=== PATIENT | male | born 1965 | race Caucasian/White ===

== ENCOUNTER 2025-01-02 10:59 | Outpatient (CLI) | payer BC, SELFPAY | END 2025-01-02 11:00 | disposition home or self-care (01) | LOC: NFLDREF 01-04 10:33 | PROVIDERS: Visit Provider Family Medicine | DX: Z00.00 Encounter for general adult medical examination without abnormal findings (principal); Z13.6 Encounter for screening for cardiovascular disorders | CPT/HCPCS: 80053; 80061 ==

== ENCOUNTER 2025-01-11 08:01 | Day surgery (SDC) | payer BC, SELFPAY ==
[2025-01-11 08:22] VITALS: BP 152/75; PULSE 74; RESP 16; TEMP 36.8; O2SAT 98; BMI 22.8
[2025-01-11] MEDS: LACTATED RINGERS 1000 ML 1,000 ML 100 ML IV (08:45)
[2025-01-11] MEDS: SODIUM CHLORIDE 0.9 % (FLUSH) 10 ML SYRINGE IVF (08:45)
--- NOTE | 2025-01-11 09:08 | W.PM.H&PU ---
History & Physical Update History & Physical Update H&P Reviewed and patient assessed: No changes noted
--- NOTE | 2025-01-11 09:08 | PM.GSPRC ---
Operative Note Date of procedure: 01/11/25 Pre-op diagnosis: Epigastric hernia Post-op diagnosis: Same Type of Procedure: Open primary repair, 7 mm epigastric hernia Indications: The patient is a 59-year-old male who presented to clinic with an abdominal hernia that has been present for several years. It has become increasingly symptomatic for him and he has been limiting his activity because of it. After discussion of options, he elected to proceed with repair. Procedure Description: After discussing the risks and benefits of the procedure, the patient signed informed consent.? The operative site was marked and the patient was brought to the operating room and placed on the operating table in supine position.? Care was taken to pad the patient's pressure points.?? The patient was then given sedation by anesthesia.?? The operative site was then prepped and draped in the usual sterile fashion.? A time-out was then performed. Local anesthetic was injected into the skin and subcutaneous tissue overlying the hernia. An incision was made in the midline and dissection was carried down until the hernia sac was encountered. This was dissected out circumferentially. The hernia sac itself was almost golf ball size, however the fascial defect was very small. I was able to reduce the hernia, excising the sac and the fascial defect was measured. This was 7 mm. I palpated the fascia above and below to ensure there were no additional defects. Because of the small size of the hernia defect I elected to close this with sutures. The fascia was closed in a [id number] fashion with 0 Nurolon sutures. Once this was done, the skin was closed with 3-0 dermal and 4-0 Monocryl running subcuticular suture. Glue was then applied. ? The patient was then woken and transported to the recovery area in stable condition. ? The patient tolerated the procedure well. Findings: 7 mm supraumbilical hernia Surgeon: Gloria Rodas MD Estimated blood loss (mL): 1 Condition: stable Disposition: same day
[2025-01-11] MEDS: BUPIVACAINE 0.25% 30 ML INJECTION (09:38)
[2025-01-11 10:10] VITALS: BP 108/67; PULSE 54; RESP 16; TEMP 36.9; O2SAT 98
[2025-01-11 10:15] VITALS: BP 114/67; PULSE 49; RESP 16; O2SAT 97
--- NOTE | 2025-01-11 10:18 | P.ANES_ITS ---
Anesthesia Charges Start Date/Time Anesthesia Start Date: 01/11/25 Anesthesia Start Time: 09:18 Stop Date/Time Anesthesia Stop Date: 01/11/25 Anesthesia Stop Time: 10:13 Coding CPT Codes CPT Codes: ANESTH REPAIR OF HERNIA - 40094 ([id number]) P1 - NORMAL HEALTHY PATIENT, QZ - FREIGHT CALLER SVC W/O SCALE ASSEMBLY SET UP WORKER BY
--- NOTE | 2025-01-11 10:18 | W.ANESCHARGE ---
Anesthesia Charges Start Date/Time Anesthesia Start Date: 01/11/25 Anesthesia Start Time: 09:18 Stop Date/Time Anesthesia Stop Date: 01/11/25 Anesthesia Stop Time: 10:13 Coding CPT Codes CPT Codes: ANESTH REPAIR OF HERNIA - 83874 ([id number]) P1 - NORMAL HEALTHY PATIENT, QZ - BOARD TURNER SVC W/O RELIEF COOK BY
[2025-01-11 10:30] VITALS: BP 113/78; PULSE 49; RESP 16; O2SAT 98
[2025-01-11 10:45] VITALS: BP 129/80; PULSE 51; RESP 16; O2SAT 99
[2025-01-11] MEDS: HYDROCODONE-ACETAMIN 5-325 MG 1 TAB PO (10:45)
[2025-01-11 11:00] VITALS: BP 139/78; PULSE 50; RESP 16; O2SAT 99
--- NOTE | 2025-01-11 11:42 | SUR.OPER ---
PATIENT QUESTIONS ANSWERED SATISFACTORILY PREOPERATIVELY. PATIENT BROUGHT TO OR #4 PER CART. Patient positioned supine on OR #4 bed. The perioperative team supported arms bilaterally on arm boards. Final approval of positioning by surgeon.
== END 2025-01-11 11:16 | disposition home or self-care (01) ==
PROVIDERS: PCP Family Medicine; Visit Provider Surgery
PROC: (CPT 49591; principal; 2025-01-11 09:15)
DX: K43.9 Ventral hernia without obstruction or gangrene (principal)
CPT/HCPCS: 49591; 00832; A9270; J0665; J0690; J1100; J2250; J2405; J2704; J3010; J3490; J7120